=== PATIENT | male | born 1985 | race African-American/Black ===

== ENCOUNTER 2018-08-22 21:31 | Emergency (ER) | payer OTHER ==
[~2018-08-22] VITALS: Ht 175.3 cm; Wt 66.0 kg
[~2018-08-22 21:31] MED LIST: OXCA150T3 PO; RISP3TAB25 PO
[2018-08-22 21:37] VITALS: BP 148/74; PULSE 110; RESP 20; Ht 175.3 cm; Wt 66.0 kg
--- NOTE | 2018-08-22 22:03 | ERD ---
ER Documentation Chief Complaint Chief Complaint localize swelling front of left ear x 4 days. body pain HPI This is a 33-year-old male who presents here emergency department with swelling/ tenderness to the front part of his left ear for 4 days. Denies insect bites. Denies trauma. Denies hearing loss. Denies headache, head injury, loss of consciousness, dizziness, neck pain, neck stiffness, throat pain, difficulty swallowing, difficulty breathing lying flat, shoulder pain, chest pain, back pain, abdominal pain, nausea, vomiting, constipation, diarrhea, urinary symptoms, loss of bowel and bladder control, trauma, injury, falls, difficulty walking due to pain, numbness or tingling sensation, calf pain, recent travel, recent major surgery in the last 3 weeks, calf pain, recent long travel, recent exposure to any illness, recent antibiotic use in the last 3 months, fever, chills, seizures. Past medical history: Denies. Surgical history: Denies. Social: Denies smoking, use of alcoholic beverages, use of illegal drugs. ROS All systems reviewed and are negative except as per history of present illness. Medications Home Meds Active Scripts Hydrocodone/Acetaminophen ([place] 10-325 Tablet) 1 Each Tablet, 1 TAB PO Q6H PRN for SEVERE PAIN LEVEL 7-10, #7 TAB Prov:BHARGAVI DELGADO 08/22/18 Ibuprofen* (Motrin*) 800 Mg Tab, 800 MG PO Q6H PRN for PAIN LEVEL 1-5, #30 TAB Prov:BHARGAVI DELGADO 08/22/18 Clindamycin Hcl* (Clindamycin Hcl*) 300 Mg Capsule, 300 MG PO TID for 10 Days, CAP Prov:BHARGAVI DELGADO 08/22/18 Risperidone* (Risperdal*) 3 Mg Tablet, 3 MG PO DAILY, #14 TAB Prov:DORIS MARTÍNEZ S. 05/18/18 Oxcarbazepine* (Trileptal*) 150 Mg Tablet, 150 MG PO BID, #28 TAB Prov:DORIS MARTÍNEZ S. 05/18/18 Oxcarbazepine* (Trileptal*) 150 Mg Tablet, 150 MG PO BID for 14 Days, TAB Prov:DORIS MARTÍNEZ. 05/18/18 Allergies Allergies: Coded Allergies: Penicillins (Verified Allergy, Unknown, 08/22/18) PMhx/Soc History of Surgery: No Anesthesia Reaction: No Hx Neurological Disorder: No Hx Respiratory Disorders: No Hx Cardiac Disorders: No Hx Psychiatric Problems: Yes (paranoid schitzophrenia, bipolar disorder, depre ssion) Hx Miscellaneous Medical Probl: No Hx Alcohol Use: Yes Hx Substance Use: Yes (Meth) Hx Tobacco Use: Yes Physical Exam Vitals Physical Exam Const: No acute distress Head: Atraumatic Eyes: Normal Conjunctiva ENT: Normal External Ears, Nose and Mouth. Right ear: TM is not erythematous. No bleeding. No discharge with no hearing loss. No mastoid tenderness. Left ear: Anterior part of swelling measuring approximately 2 cm in diameter. Fluctuance noted. No induration. No mastoid tenderness. TMs not erythematous. No bleeding. No discharge. No hearing loss. Nose: Midline without deviation. No cephalhematoma. There is no frontal or maxillary sinus tenderness to palpation. Bilateral mandibular area is no swelling/tenderness and is good and full range of motion. Neck: Full range of motion. No meningismus. No nuchal rigidity. No signs of meningeal irritation. Resp: Clear to auscultation bilaterally Cardio: Regular rate and rhythm, no murmurs Abd: Soft, non tender, non distended. Normal bowel sounds Skin: No petechiae or rashes Back: No midline or flank tenderness Ext: No cyanosis, or edema Neur: Awake and alert. No neurological deficits. Psych: Normal Mood and Affect Results 24 hrs Current Medications Medications Dose Sig/Corey Start Time Status Last (Trade) Ordered Route PRN Stop Time Admin Dose Reason Admin 1 tab ONCE ONCE 08/22/18 DC 08/22/18 Acetaminophen PO 22:30 22:21 / 08/22/18 Hydrocodone 22:31 Bitart ([place] (10/325)) Lidocaine 20 ml ONCE ONCE 08/22/18 DC (Xylocaine SC 22:30 1% (Mdv) 20 08/22/18 ml) 22:31 Clindamycin 600 mg ONCE ONCE 08/22/18 DC Phosphate IM 23:00 (Cleocin) 08/22/18 23:00 Clindamycin 600 mg ONCE IM 08/22/18 DC Phosphate 23:00 (Cleocin) 08/22/18 23:12 Clindamycin 600 mg ONCE ONCE 08/22/18 DC 08/22/18 HCl PO 23:30 23:23 (Cleocin) 08/22/18 23:30 Procedures/MDM This case was discussed with my supervising physician, Dr. Doris Martínez who agreed with my medical decision making to do an I&D. Diagnostic tests: Clinical exam. Treatment: [place] p.o. clindamycin IM. Procedure: Incision and drainage of abscess to anterior side of the left ear. Betadine prep. Lidocaine 1% 2 cc subcu. Re-evaluation: No active bleeding. Differential diagnosis I have low suspicion for mastoiditis, meningitis, peritonsillar abscess, necrotizing fasciitis. Final diagnosis: Abscess with incision and drainage. Prescription: Clindamycin. Motrin. [place] for severe pain. Follow-up with PCP in the next 24-48 hours. Come back in 2 days for a wound check and removal of packing and/or repacking. Come back here in the emergency department for any new symptoms or any worsening symptoms. All questions and concerns were answered. Patient and family members verbalized understanding and agreed with plan of care. Hemodynamically stable on discharge. Departure Diagnosis: Primary Impression: Abscess Condition: Stable Additional Instructions: Follow-up with PCP in the next 24-48 hours. Come back in 2 days for a wound check and removal of packing and/or repacking. Come back here in the emergency department for any new symptoms or any worsening symptoms. BHARGAVI DELGADO Aug 22, 2018 22:03
[2018-08-22] MEDS ORDERED: HYDROCODONE/APAP (10/325) TAB PO ONE (22:30)
[2018-08-22] MEDS ORDERED: LIDOCAINE 1% (MDV) 20 ML INJ SC ONE (22:30)
[2018-08-22] MEDS ORDERED: IBUP800T48 PO (22:39)
[2018-08-22] MEDS ORDERED: CLIN300C10 PO (22:39)
[2018-08-22] MEDS ORDERED: HYDR-3980 PO (22:40)
[2018-08-22] MEDS: CLINDAMYCIN 300 MG INJ IM SCH ×2 (23:00→23:06)
[2018-08-22] MEDS ORDERED: CLINDAMYCIN 600 MG INJ IM ONE (23:00)
[2018-08-22] MEDS ORDERED: CLINDAMYCIN 300 MG CAP PO ONE (23:30)
== END 2018-08-22 23:27 | disposition home or self-care (01) ==
LOC: FTE 21:31
DX: H60.02 Abscess of left external ear (principal); Z87.891 Personal history of nicotine dependence
CPT/HCPCS: 69000; Z7502; Z7610

== ENCOUNTER 2019-02-03 02:19 | Emergency (ER) | payer OTHER ==
[~2019-02-03] VITALS: Ht 175.3 cm; Wt 57.9 kg
[~2019-02-03 02:19] MED LIST changes: +CLIN300C10 PO; +HYDR-3980 PO; +IBUP800T48 PO
[2019-02-03 02:36] VITALS: BP 138/86; PULSE 69; RESP 18; Ht 175.3 cm; Wt 57.9 kg
[2019-02-03] MEDS ORDERED: BACI28.34 TOP (03:15)
--- NOTE | 2019-02-03 03:24 | ERD ---
ER Documentation Chief Complaint Chief Complaint states kevin foot blisters x 3 weeks HPI 34-year-old male presenting to the emergency department complaining of blisters to his feet bilaterally intermittently for the past 3 weeks. He states he does a lot of walking barefoot causing him to break out in blisters. He reports mild associated pain which is intermittent and worse with walking. He denies any fevers or chills or other symptoms at this time. ROS All systems reviewed and are negative except as per history of present illness. Medications Home Meds Active Scripts Bacitracin* (Bacitracin Zinc Oint*) 28.35 Gm Oint, 1 APPLIC TOP BID, #1 TUB APPLI TO Prov:DORIS STOVALL PA-C 02/03/19 Hydrocodone/Acetaminophen ([facility] 10-325 Tablet) 1 Each Tablet, 1 TAB PO Q6H PRN for SEVERE PAIN LEVEL 7-10, #7 TAB Prov:SANDYTYMIGDALIA Thrasher 08/22/18 Ibuprofen* (Motrin*) 800 Mg Tab, 800 MG PO Q6H PRN for PAIN LEVEL 1-5, #30 TAB Prov:BHARGAVI DELGADO F 08/22/18 Clindamycin Hcl* (Clindamycin Hcl*) 300 Mg Capsule, 300 MG PO TID for 10 Days, CAP Prov:SANDYTYMIGDALIA F 08/22/18 Risperidone* (Risperdal*) 3 Mg Tablet, 3 MG PO DAILY, #14 TAB Prov:DORIS MARTÍNEZ 05/18/18 Oxcarbazepine* (Trileptal*) 150 Mg Tablet, 150 MG PO BID, #28 TAB Prov:DORIS MARTÍNEZ 05/18/18 Oxcarbazepine* (Trileptal*) 150 Mg Tablet, 150 MG PO BID for 14 Days, TAB Prov:DORIS MARTÍNEZ. 05/18/18 Allergies Allergies: Coded Allergies: Penicillins (Verified Allergy, Unknown, 08/22/18) PMhx/Soc Medical and Surgical Hx: pt denies Surgical Hx History of Surgery: No Anesthesia Reaction: No Hx Neurological Disorder: No Hx Respiratory Disorders: No Hx Cardiac Disorders: No Hx Psychiatric Problems: Yes (paranoid schitzophrenia, bipolar disorder, depression) Hx Miscellaneous Medical Probl: No Hx Alcohol Use: No Hx Substance Use: Yes (Meth) Hx Tobacco Use: Yes Smoking Status: Current every day smoker FmHx Family History: No diabetes Physical Exam Vitals Vital Signs Date Temp Pulse Resp B/P (MAP) Pulse Ox O2 O2 Flow FiO2 Time Delivery Rate 02/03/19 98.2 69 18 138/86 99 02:36 (103) Physical Exam Const: No acute distress Head: Atraumatic Eyes: Normal Conjunctiva ENT: Normal External Ears, Nose and Mouth. Neck: Full range of motion. No meningismus. Resp: No respiratory distress. Skin: No petechiae or rashes Back: No midline or flank tenderness Ext: Scattered blisters noted to the feet bilaterally. No surrounding erythema. No lymphatic streaking. No warmth. Neur: Awake and alert Psych: Normal Mood and Affect Procedures/MDM 34-year-old male presents to the emergency department with signs and symptoms most consistent with blisters of his feet bilaterally. No evidence of infection. Patient is nontoxic and well-appearing and afebrile and he is stable and appropriate for discharge and further outpatient management. Advised for close primary care follow-up and return to the department immediately for any new or worsening or concerning symptoms. Patient's blood pressure was elevated (>120/80) but appears stable without evidence of hypertension emergency or urgency. The patient is to follow-up and pursue outpatient monitoring and therapy with their primary care physician within 1 week and return immediately if they have any new, worsening, or conc erning symptoms. Departure Diagnosis: Primary Impression: Blisters of multiple sites Condition: Fair Patient Instructions: Blister Additional Instructions: Call your primary care doctor TOMORROW for an appointment during the next 1-2 days.See the doctor sooner or return here if your condition worsens before your appointment time. DORIS STOVALL PA-C Feb 03, 2019 03:24
== END 2019-02-03 03:57 | disposition home or self-care (01) ==
LOC: FTE 02:19
DX: S90.821A Blister (nonthermal), right foot, initial encounter (principal); F17.210 Nicotine dependence, cigarettes, uncomplicated; S90.822A Blister (nonthermal), left foot, initial encounter; X58.XXXA Exposure to other specified factors, initial encounter; Y92.9 Unspecified place or not applicable
CPT/HCPCS: 99282